=== PATIENT | female | born 1950 | race Caucasian/White ===

== ENCOUNTER 2018-02-05 07:34 | Inpatient (IN) | payer OTHER ==
[~2018-02-05] VITALS: Ht 167.6 cm; Wt 93.9 kg
[~2018-02-05 07:34] MED LIST: ASPI81TA27 PO; ESCI20TA PO; FENO1TAB42 PO; FERR140T2 PO; HYDR-4683 PO; LOSA50TA6 PO; METF-370 PO; METO-169 PO; NITR0.4S29 SL; PANT40T PO; RANO500T2 PO; ROSU1TAB6 PO
[2018-02-05] MEDS ORDERED: IODIXANOL 320MG/ML 100ML BTL IV ONE (09:53)
[2018-02-05] MEDS ORDERED: LIDOCAINE 2%HCL (LOCAL ANESTH.) INJ 20ML MDV ONE (09:53)
[2018-02-05] MEDS ORDERED: fentaNYL CITRATE 100 MCG/2 ML VL ONE (09:54)
[2018-02-05] MEDS ORDERED: ANGIOMAX 250 MG VIAL IV ONE (09:54)
[2018-02-05] MEDS ORDERED: MIDAZOLAM HCL 1MG/1ML-2 ML VIAL ONE (09:54)
[2018-02-05] MEDS ORDERED: SODIUM CHL 0.9% 50 ML ONE (09:55)
[2018-02-05] MEDS ORDERED: VERAPAMIL 2.5MG/ML INJ 2ML VIAL IV ONE (10:13)
[2018-02-05] MEDS ORDERED: TICAGRELOR 90 MG TAB ONE (10:57)
[2018-02-05] MEDS ORDERED: MORPHINE SULFATE 4 MG/ML SYR/VIAL IV PRN (11:30)
[2018-02-05] MEDS ORDERED: NITROGLYCERIN 0.4 MG SL TAB SL PRN (11:30)
[2018-02-05] MEDS: HYDROcodone-ACET 5/325MG TAB PO PRN (13:08)
[2018-02-05] MEDS ORDERED: DEXTROSE (50%) 50ML SYRG IV PRN (13:30)
[2018-02-05 13:49] VITALS: BP 124/61
[2018-02-05 14:24] LABS: Basophils # (auto) 0.1 uL; Basophils % (auto) 0.8 % (0.0-2.0); Eosinophils # (auto) 0.3 uL; Eosinophils % (auto) 4.8 % (0.0-7.0); Hematocrit 35.3 % (36.0-46.0); Hemoglobin 11.3 g/dL (12.2-16.2); Lymphocytes # (auto) 1.7 uL; Mean Corpuscular Hemoglobin 28.6 pg (28.0-32.0); Mean Corpuscular Hgb Conc. 31.9 g/dL (32.0-36.0); Mean Corpuscular Volume 89.7 fL (80.0-100.0); Monocytes # (auto) 0.4 uL; Monocytes % (auto) 5.8 % (0.0-12.0); Neutrophils # (auto) 4.4 uL; Neutrophils % (auto) 63.6 % (37.0-80.0); Nucleated Red Blood Cells % 0.1 %; Platelet Count (auto) 209 10^3/uL (140-450); Red Blood Cells 3.93 10^6/uL (4.0-5.20); Red Cell Distribution Width 15.4 % (11.8-14.3)
[2018-02-05 14:39] LABS: BUN/Creatinine Ratio 18.9; Calcium 9.4 mg/dL (8.5-10.1); Potassium 4.8 mmol/L (3.5-5.1)
[2018-02-05 14:40] LABS: INR 1.12 (0.9-1.15); Partial Thromboplastin Time 33.5 sec (22.64-33.71); Prothrombin Time 12.2 sec (9.37-12.3)
[2018-02-05] MEDS: FENOFIBRATE 145MG TAB PO SCH (15:00)
[2018-02-05 17:07] VITALS: BP 125/60
[2018-02-05] MEDS: SODIUM CHLOR 0.9% PF (SALINE LOCK) 10ML VIAL/SYR IV SCH ×2 (17:57→21:39)
[2018-02-05] MEDS: InsuLIN REG 1unit/0.01ml Soln (100units/ml) SC SCH ×2 (17:57→23:28)
[2018-02-05] MEDS: ACCU-CHEK COMFORT CURVE STRIP VI SCH ×2 (17:57→21:43)
[2018-02-05] MEDS: RANOLAZINE ER 500 MG TAB PO SCH (21:37)
[2018-02-05] MEDS: ATORVASTATIN 20 MG TAB PO SCH (21:38)
[2018-02-05 22:00] VITALS: BP 148/85
[2018-02-06 05:41] VITALS: BP 109/51
[2018-02-06] MEDS: SODIUM CHLOR 0.9% PF (SALINE LOCK) 10ML VIAL/SYR IV SCH ×3 (06:33→21:52)
[2018-02-06] MEDS: InsuLIN REG 1unit/0.01ml Soln (100units/ml) SC SCH ×4 (06:34→21:52)
[2018-02-06] MEDS: ACCU-CHEK COMFORT CURVE STRIP VI SCH ×4 (06:34→21:52)
[2018-02-06] MEDS: LOSARTAN POTASSIUM 50 MG TAB PO SCH (08:29)
[2018-02-06] MEDS: METOPROLOL SUCCINATE XL 50 MG TAB PO SCH (08:29)
[2018-02-06] MEDS: ESCITALOPRAM 20 MG PO SCH (08:30)
[2018-02-06] MEDS: PANTOPRAZOLE 40 MG TAB PO SCH (08:30)
[2018-02-06] MEDS: ASPirin-EC 81 mg tab PO SCH (08:30)
[2018-02-06] MEDS: FENOFIBRATE 145MG TAB PO SCH (08:31)
[2018-02-06] MEDS: RANOLAZINE ER 500 MG TAB PO SCH ×2 (08:38→21:52)
[2018-02-06 09:00] VITALS: BP 132/68
[2018-02-06 13:00] VITALS: BP 119/61
[2018-02-06] MEDS ORDERED: SODIUM CHL 0.9% 50 ML ONE ×2 (15:25→16:18)
[2018-02-06] MEDS ORDERED: VERAPAMIL 2.5MG/ML INJ 2ML VIAL IV ONE (15:58)
[2018-02-06] MEDS ORDERED: ANGIOMAX 250 MG VIAL IV ONE (16:17)
[2018-02-06] MEDS ORDERED: PRASUGREL HCL 10 MG TAB ONE (17:00)
[2018-02-06 20:00] VITALS: BP 129/63
[2018-02-06] MEDS: HYDROcodone-ACET 5/325MG TAB PO PRN (20:07)
[2018-02-06] MEDS: ATORVASTATIN 20 MG TAB PO SCH (21:52)
[2018-02-06 22:00] VITALS: BP 129/63
[2018-02-06 22:53] VITALS: BP 129/63
[2018-02-07] MEDS: SODIUM CHLOR 0.9% PF (SALINE LOCK) 10ML VIAL/SYR IV SCH ×2 (05:44→14:52)
[2018-02-07 05:47] VITALS: BP 114/60
[2018-02-07] MEDS: ACCU-CHEK COMFORT CURVE STRIP VI SCH ×2 (06:41→11:30)
[2018-02-07] MEDS: HYDROcodone-ACET 5/325MG TAB PO PRN (06:41)
[2018-02-07] MEDS: InsuLIN REG 1unit/0.01ml Soln (100units/ml) SC SCH ×2 (06:41→11:30)
[2018-02-07 08:58] VITALS: BP 109/54
[2018-02-07] MEDS ORDERED: PRASUGREL HCL 10 MG TAB PO SCH (10:00)
[2018-02-07] MEDS: RANOLAZINE ER 500 MG TAB PO SCH (10:59)
[2018-02-07] MEDS: ASPirin-EC 81 mg tab PO SCH (10:59)
[2018-02-07] MEDS: PANTOPRAZOLE 40 MG TAB PO SCH (11:00)
[2018-02-07] MEDS: METOPROLOL SUCCINATE XL 50 MG TAB PO SCH (11:02)
[2018-02-07] MEDS: ESCITALOPRAM 20 MG PO SCH (11:03)
[2018-02-07] MEDS: FENOFIBRATE 145MG TAB PO SCH (11:03)
[2018-02-07] MEDS: LOSARTAN POTASSIUM 50 MG TAB PO SCH (11:03)
[2018-02-07 13:00] VITALS: BP 128/49
[2018-02-07 16:27] VITALS: BP 113/63
[2018-02-07] MEDS ORDERED: PRAS10TA6 PO (16:37)
== END 2018-02-07 17:30 | disposition home health service (06) | DRG 247 ==
LOC: CATH 07:34 → TELE-WESTW 07:35
PROVIDERS: ADMIT Internal Medicine; ATTEND Internal Medicine
PROC: 02703ZZ Dilation of Coronary Artery, One Artery, Percutaneous Approach (ICD-10-PCS; principal; 2018-02-05)
PROC: 4A023N7 Measurement of Cardiac Sampling and Pressure, Left Heart, Percutaneous Approach (ICD-10-PCS; 2018-02-05)
PROC: B2111ZZ Fluoroscopy of Multiple Coronary Arteries using Low Osmolar Contrast (ICD-10-PCS; 2018-02-05)
PROC: 02C03ZZ Extirpation of Matter from Coronary Artery, One Artery, Percutaneous Approach (ICD-10-PCS; 2018-02-06)
PROC: 027035Z Dilation of Coronary Artery, One Artery with Two Drug-eluting Intraluminal Devices, Percutaneous Approach (ICD-10-PCS; 2018-02-06)
PROC: 4A023N7 Measurement of Cardiac Sampling and Pressure, Left Heart, Percutaneous Approach (ICD-10-PCS; 2018-02-06)
PROC: B2111ZZ Fluoroscopy of Multiple Coronary Arteries using Low Osmolar Contrast (ICD-10-PCS; 2018-02-06)
DX: T82.855A Stenosis of coronary artery stent, initial encounter (principal); E11.9 Type 2 diabetes mellitus without complications; I25.84 Coronary atherosclerosis due to calcified coronary lesion; E78.5 Hyperlipidemia, unspecified; F32.9 Major depressive disorder, single episode, unspecified; I10 Essential (primary) hypertension; I70.0 Atherosclerosis of aorta; Z87.891 Personal history of nicotine dependence; Y83.1 Surgical operation with implant of artificial internal device as the cause of abnormal reaction of the patient, or of later complication, without mention of misadventure at the time of the procedure; K21.9 Gastro-esophageal reflux disease without esophagitis; Y92.89 Other specified places as the place of occurrence of the external cause; Z82.49 Family history of ischemic heart disease and other diseases of the circulatory system; I25.118 Atherosclerotic heart disease of native coronary artery with other forms of angina pectoris; I25.2 Old myocardial infarction; Z88.0 Allergy status to penicillin; Z88.2 Allergy status to sulfonamides
CPT/HCPCS: 36415; 80048; 82962; 83735; 85025; 85610; 85730; 92928; 93458; 99152; 99153; C1874; C1887; C9600; J1815; J2250; Q9967

== ENCOUNTER 2023-07-15 08:29 | Inpatient (IN) | payer OTHER ==
[~2023-07-15] VITALS: Ht 170.2 cm; Wt 80.5 kg
[2023-07-15] VITALS (24 sets, daily range): BP systolic 78–118; BP diastolic 27–73; PULSE 51–92; RESP 12–27; TEMP 97.3–97.6; O2SAT 89–98
[~2023-07-15 08:29] MED LIST changes: +ASPI-543 PO; -ASPI81TA27 PO; +FENO145T27 PO; -FENO1TAB42 PO; +FER325T PO; -FERR140T2 PO; -HYDR-4683 PO; -LOSA50TA6 PO; -METF-370 PO; -METO-169 PO; +METO-289 PO; -NITR0.4S29 SL; +ROSU1TAB14 PO; -ROSU1TAB6 PO
[2023-07-15] MEDS ORDERED: ceFAZolin 1GM/50ML 100 ML IV ONE (08:39)
[2023-07-15] MEDS ORDERED: VANCOMYCIN HCL 1000 MG VL ONE (08:58)
[2023-07-15] MEDS ORDERED: PROPOFOL 10 MG/ML 20 ML IV ONE (10:06)
[2023-07-15] MEDS ORDERED: SODIUM CHLORIDE LOCK 10 ML ONE ×2 (10:06→12:24)
[2023-07-15] MEDS ORDERED: ONDANSETRON HCL 4 MG/2 ML VIAL ONE (10:06)
[2023-07-15] MEDS ORDERED: PHENYLEPHRINE HCL 10 MG/ML VL ONE (10:06)
[2023-07-15] MEDS ORDERED: DexAMETHasone SOD PHOS 10MG/1ML VIAL INJ ONE (10:06)
[2023-07-15] MEDS ORDERED: GLYCOPYRROLATE 0.2 MG/ML 1ML VIAL ONE (10:06)
[2023-07-15] MEDS ORDERED: ROCURONIUM 10MG/ML 10ML VIAL IV ONE (10:07)
[2023-07-15] MEDS ORDERED: BUPIVACAINE HCL 50 ML ONE (10:41)
[2023-07-15] MEDS ORDERED: HEPARIN SODIUM (PORCINE) 5000 UNITS/ML 1ML VIAL ONE (10:41)
[2023-07-15] MEDS ORDERED: fentaNYL CITRATE 100 MCG/2 ML VL ONE (11:01)
[2023-07-15] MEDS ORDERED: GELATIN 1 SPONGE SIZE 100 TOP ONE (11:24)
[2023-07-15] MEDS ORDERED: LIDOCAINE 2% JELLY 11ml (GLYDO) ONE (11:57)
[2023-07-15 11:59] LABS: INR 1.15 (0.9-1.15); Partial Thromboplastin Time 28.3 SEC (24.5-34.5)
[2023-07-15] MEDS ORDERED: ePHEDrine SULFATE 50 MG/ML AMP ONE (12:23)
[2023-07-15] MEDS ORDERED: SUGAMMADEX 200mg/2ml Vial (100MG/ML) IV ONE (13:21)
[2023-07-15] MEDS ORDERED: NITROGLYCERIN 0.4 MG SL TAB SL PRN (14:15)
[2023-07-15] MEDS ORDERED: ePHEDrine SULFATE 50 MG/ML AMP IV PRN (14:15)
[2023-07-15] MEDS ORDERED: ONDANSETRON HCL 4 MG/2 ML VIAL IV PRN (14:15)
[2023-07-15] MEDS ORDERED: fentaNYL CITRATE 100 MCG/2 ML VL IV PRN (14:15)
[2023-07-15] MEDS ORDERED: LABETALOL HCL 5 MG/ML 4ML SYRINGE IV PRN (14:15)
[2023-07-15] MEDS ORDERED: FLUMAZENIL 0.1 MG/ML INJ 10ML MDV IV PRN (14:15)
[2023-07-15] MEDS ORDERED: MORPHINE SULFATE INJ 2 MG/ml SYRG IV PRN (14:15)
[2023-07-15] MEDS ORDERED: hydrALAZINE HCL 20 MG/ML VL IV PRN (14:15)
[2023-07-15] MEDS ORDERED: NALOXONE HCL 0.4 MG/ML VIAL IV PRN (14:15)
[2023-07-15] MEDS: HYDROmorphone HCL 2 MG/ML VL/or syr IV PRN ×2 (15:18→15:43)
[2023-07-16] VITALS (77 sets, daily range): BP systolic 72–149; BP diastolic 23–62; PULSE 46–86; RESP 11–27; TEMP 97.4–97.8; O2SAT 89–100
== END 2023-07-16 13:40 | disposition home or self-care (01) | DRG 39 ==
LOC: SUR 08:29 → TELE 14:19 → ICU CENTRL 18:39
PROVIDERS: ADMIT Surgery Vascular Surgery; ATTEND Surgery Vascular Surgery
PROC: 03UL0KZ Supplement Left Internal Carotid Artery with Nonautologous Tissue Substitute, Open Approach (ICD-10-PCS; 2023-07-15)
PROC: 03CL0ZZ Extirpation of Matter from Left Internal Carotid Artery, Open Approach (ICD-10-PCS; principal; 2023-07-15 12:11)
DX: I65.22 Occlusion and stenosis of left carotid artery (principal); E78.5 Hyperlipidemia, unspecified; I10 Essential (primary) hypertension; I25.10 Atherosclerotic heart disease of native coronary artery without angina pectoris; Z88.0 Allergy status to penicillin; Z88.2 Allergy status to sulfonamides
CPT/HCPCS: 36415; 85610; 85730; 86850; 86900; 86901; 87081; G0378; J0690; J1100; J2405; J2704; J3490